=== PATIENT | female | born 1995 | race Caucasian/White ===

== ENCOUNTER 2017-10-28 08:54 | Day surgery (SDC) | payer OTHER, SELFPAY ==
[2017-10-16 16:39] VITALS: BMI 22.8
[2017-10-28] VITALS (7 sets, daily range): BP systolic 107–118; BP diastolic 69–76; PULSE 59–81; RESP 12–22; TEMP 36.3–36.8; O2SAT 98–100; BMI 22.8; BMI 22.7
[2017-10-28] MEDS: LACTATED RINGERS 1,000 ML 42 ML IV (09:39)
--- NOTE | 2017-10-28 10:52 | SUR.OPER ---
Lithotomy on padded OR bed, head on pillow, arms secured on padded arm boards at <90 degrees abduction. Legs secured in padded yellow fins stirrups.
[2017-10-28] MEDS: BUPIVACAINE 0.5% W/ EPI (PF) VIAL 30 ML INJ (11:00)
--- NOTE | 2017-10-28 11:00 | PM.PREOP ---
Pre-operative Note Interval Note Pre-op Check: Yes History & Physical exam performed today by Physician Changes: No
--- NOTE | 2017-10-28 11:03 | P.HPOB_ITS ---
History of Present Illness Narrative: Tina Montemayor is a 21 year old female 0 with pelvic pain and dysmenorrhea for a diagnostic laparoscopy [facility] Medical History Dysmenorrhea (Acute) Pelvic pain (Acute) Social History household members: significant other Smoking Status: Current every day smoker Meds Home Medications Medication Instructions Recorded Confirmed Type No Known Home Medications 10/09/17 10/16/17 History Allergies Allergy/AdvReac Type Severity Reaction Status Date / Time Latex, Natural Rubber Allergy Mild Rash Verified 10/28/17 09:25 Exam Vital Signs (past 8 hours): - 10/28/17 09:12 Temperature 98.1 F Pulse Rate 70 Respiratory Rate 18 Blood Pressure 108/71 Pulse Oximetry 100 Oxygen Delivery Method Room Air Narrative Exam Narrative: HEENT: No thyromegaly, no anterior cervical or supraclavicular lymphadenopathy. Lungs:Clear to auscultation bilaterally, no wheezes. Cardiovascular: Regular rate and rhythm, no murmurs, rubs, or gallops. Abdomen: No scars. No hepatosplenomegaly. No masses palpable. External genitalia: Normal Vagina: Normal Cervix: Normal Bimanual exam: 5 Week size uterus. Mobile.] Tenderness along the uterosacral ligaments. Rectal: No masses. Assessment & Plan (1) Pelvic pain in female: Current visit: Yes Status: Acute (2) Primary dysmenorrhea: Current visit: Yes Status: Acute Plan: Assessment/Plan Narrative: Assessment: 21-year-old 0 with dysmenorrhea and pelvic pain, suspect endometriosis Plan: Diagnostic laparoscopy with possible fulguration of endometriosis The risks, benefits, and alternatives to the procedure were explained to the patient. The risks including bleeding, infection, injury to the bowel, bladder , or ureters. She understands these risks and agrees to proceed. A full capital P AR-Q was held and consent form was signed.
--- NOTE | 2017-10-28 11:07 | PM.GYNOP.1 ---
Operative Date/Time/Diagnoses Date of procedure: 10/28/17 Time of procedure: 11:07 Pre-op diagnosis: Pelvic pain Dysmenorrhea Post-op diagnosis: same Procedure: Procedures Operation Date: 10/28/17 09:45 Actual Procedures Side Surgeon p Laparoscopy, Diagnostic with aspiration of pelvic fluid Ava Garza MD Indications: Dysmenorrhea Pelvic pain Surgeon: Ava Garza Anesthesia Type: General Operative Notes Findings: 5 week size anteverted uterus Normal tubes and ovaries Normal appendix Normal liver and gallbladder No evidence of endometriosis or adhesions Closure Type: primary Specimen(s): none Estimated blood loss (mL): 2 Blood products transfused: none Procedure in detail: After informed consent was obtained, the patient was taken to the operating room where she was placed in the dorsal supine position. After adequate general endotracheal anesthesia was achieved, she was prepped and draped in the usual sterile fashion in the dorsal lithotomy position. A bivalve speculum was placed into the vagina, and the anterior lip of the cervix grasped with a single-tooth tenaculum. Cervical os was sequentially dilated until the Zumi uterine manipulator could pass easily into the endometrial cavity. Single-tooth tenaculum was removed from the anterior lip of the cervix. The bivalve speculum was removed from the vagina. Attention was then turned to the abdomen where 6 cc of 0.5% Marcaine with epinephrine were injected in the umbilical fold. A 5 mm incision was made. The Veress needle was placed into the peritoneal cavity, and its placement confirmed by aspiration drop test. The abdominal cavity was insufflated with 3.1 L of CO2. The Verhees needle was removed and a 5 mm trocar was placed without difficulty. Initial inspection of the abdomen revealed the findings noted above. A 2nd incision was made after 6 cc of 0.5% Marcaine with epinephrine were injected just above the pubic symphysis and a 5 mm incision was made. A 2nd 5 mm trocar was placed under direct visualization. A probe was used to identify both ovaries which were normal. Both tubes were normal. There was no evidence of endometriosis in the anterior or posterior cul-de-sac, or ovarian fossae. There was no evidence of adhesions. There were approximately 15 cc of clear yellow fluid in the cul-de-sac. This was aspirated and discarded. The instruments were removed from the abdomen. The CO2 was allowed to escape. The trocars were removed. The incisions were repaired with 4 0 undyed Vicryl in a subcuticular fashion. Steri-Strips, 2 x 2, and op sites were placed. The Zumi uterine manipulator was removed from the uterus. Sponge, lap, and instrument counts were correct x2. The patient tolerated the procedure well, was taken to PACU in stable condition. Complications: none Post-operative Condition: stable Disposition: PACU Plan for aftercare: Home after recovery
[2017-10-28] MEDS: ONDANSETRON 4 MG/2 ML INJ IV (11:15)
[2017-10-28] MEDS: METOCLOPRAMIDE 10 MG/2 ML INJ IV (11:27)
== END 2017-10-28 12:02 | disposition home or self-care (01) ==
PROVIDERS: Visit Provider Obstetrics & Gynecology
PROC: (CPT 49320; principal; 2017-10-28 09:45)
DX: R10.2 Pelvic and perineal pain (principal); N94.6 Dysmenorrhea, unspecified; F17.210 Nicotine dependence, cigarettes, uncomplicated
CPT/HCPCS: 49322; J1100; J2405; J2704; J2765

== ENCOUNTER → 2020-10-24 17:37 | Outpatient (CLI) | payer OTHER, SELFPAY ==
[2020-10-24 18:16] LABS: Add Manual Diff / Slide Review NO; Basophils Absolute Auto 0 /uL (0-100); Basophils Percent Auto 0.4 % (0-2); Eosinophils Absolute Auto 100 /uL (0-450); Eosinophils Percent Auto 0.5 % (2-4); Hematocrit 37.2 % (36-46); Hemoglobin 12.6 g/dL (12.0-16.0); Lymphocytes Absolute Auto 2100 /uL (1100-4500); Lymphocytes Percent Auto 18.9 % (25-40); Mean Corpuscular HGB Conc 33.8 % (30-36); Mean Corpuscular Hemoglobin 31.9 PG (26-34); Mean Corpuscular Volume 94.4 fL (80-100); Monocytes Absolute Auto 700 /uL (0-900); Monocytes Percent Auto 6.6 % (3-14); Neutrophils Absolute Auto 8100 /uL (1500-7000); Neutrophils Percent Auto 73.6 % (50-75); Platelet Count 254 X10^3/uL (150-400); Red Blood Cell Count 3.94 X10^6/uL (4.0-5.2); Red Cell Distribution Width 13.1 % (11.6-14.8)
[2020-10-24 18:33] LABS: Appearance Urine UA CLEAR; Bilirubin Urine UA NEGATIVE (NEGATIVE); Color Urine UA YELLOW; Glucose Urine UA NEGATIVE (Negative); Ketones Urine UA NEGATIVE (NEGATIVE); Leukocyte Esterase Urine UA NEGATIVE (NEGATIVE); Nitrite Urine UA NEGATIVE (Negative); Occult Blood Urine UA NEGATIVE (Negative); Protein Urine UA TRACE (Negative); Urobilinogen Urine UA 0.2 E.U./dL (0.2)
[2020-10-24 19:18] LABS: Hepatitis B Surface Antigen NEGATIVE s/c (NEGATIVE); Rubella Antibody IgG 4.6 IU/mL (>15)
[2020-10-24 19:24] LABS: HIV 1 & 2 Ab/Ag 4th Gen Combo NEGATIVE (NEGATIVE); Hep C Virus Ab w/Reflex Quant NEGATIVE s/c (NEGATIVE)
[2020-10-25 08:16] LABS: RPR Screen Non Reactive (Non Reactive)
[2020-10-25 08:46] LABS: Varicella IgG Antibody 464 index (Immune >165)
== END ==
PROVIDERS: PCP Physician Assistant; Referring Provider Obstetrics & Gynecology; Visit Provider Obstetrics & Gynecology
DX: Z34.81 Encounter for supervision of other normal pregnancy, first trimester (principal)
CPT/HCPCS: 36415; 80055; 81003; 86787; 86803; 86850; 86900; 86901; 87086; 87389

== ENCOUNTER → 2020-12-26 16:17 | Outpatient (CLI) | payer OTHER, SELFPAY ==
[2020-12-28 19:12] LABS: AFP, Serum 79.7 ng/mL (.); Estriol, Free 1.39 ng/mL (.); Inhibin A, MoM 1.75 (.); Maternal Ethnicity Caucasian (.); Maternal Weight 150 lbs (.); Number of Fetuses No (.); OSBR Risk 1 IN 1162 (.); Results Report (.); Test Results *Screen Negative* (.); hCG, Serum 14788 mIU/mL (.)
== END ==
PROVIDERS: PCP Physician Assistant; Referring Provider Obstetrics & Gynecology; Visit Provider Obstetrics & Gynecology
DX: Z34.82 Encounter for supervision of other normal pregnancy, second trimester (principal); Z3A.16 16 weeks gestation of pregnancy
CPT/HCPCS: 36415; 82105; 82677; 84702; 86336

== ENCOUNTER → 2021-01-31 13:31 | Outpatient (CLI) | payer OTHER, SELFPAY ==
--- NOTE | 2021-01-31 13:32 | DI.US.S_ITS ---
PROCEDURE: US OB >= 14 WEEKS FETUS INDICATIONS: Anatomy scan OUTSIDE/PRIOR DATING DATA: Last menstrual period (LMP): 08/23/2020. LMP-based estimated date of delivery (ÁNGEL): 05/30/2021 . First dating scan (date and location): 10/24/2020 . Estimated date of delivery (ÁNGEL) from first dating scan: 05/22/2021 . TECHNIQUE: Real-time scanning was performed of the fetus, with image documentation and biometric measurements. Endovaginal scanning: No COMPARISON: [facility], , OB <= 14 WEEKS FETUS, 10/24/2020, 17:33. FINDINGS: General: A single living intrauterine gestation is present. Presentation: Variable. Placenta: Placental position is anterior , without previa. Amniotic fluid index: 14.9 cm, normal range is 5-24 cm. heart rate: 139 beats per minute. Maternal cervical canal: 3.5 cm long. Normal lower limit is 2.5 cm. biometrics: Biparietal diameter: 24 weeks Head circumference: 24 weeks 2 days Abdominal circumference: 23 weeks 6 days Femur length: 22 weeks 6 days Estimated gestational age from initial scan: 24 weeks 1 day Composite gestational age from present scan: 23 weeks 5 days Estimated weight and percentile: 607 g; 18th percentile Measurement variability for biometric dating: +/- 7 days from 14 weeks to 15 weeks 6 days gestation, +/- 10 days from 16 weeks to 21 weeks 6 days gestation, +/- 2 weeks from 22 weeks to 27 weeks 6 days gestation, +/- 3 weeks for 28 weeks gestation or later. weight reference: 4500 g or EFW >90/95% is considered macrosomia or large for gestational age. EFW <10% is small for gestational age. EFW 5% or less is considered intra-uterine growth restriction. Anatomic survey: Neuro: Ventricles are non-dilated at less than 10 mm. Cisterna magna is normal at 3-11 mm. Cerebellum is normal in size and morphology. Nuchal skin fold: Normal at less than 6 mm between 14-21 weeks gestational age. Face: Nose and lips, facial profile are normal. Spine: No evidence for spina bifida. Heart: 4-chambered heart is present, with normal ventricular outflow tracts. Diaphragm: Diaphragm is intact. Stomach: Left-sided stomach is present. Kidneys: No hydronephrosis. Normal is less than 5 mm in 2nd trimester, less than 7 mm in 3rd trimester. Cord: 3-vessel cord has orthotopic insertion. Bladder: Normal in size. Extremities: All 4 extremities identified. IMPRESSION: 1. Single living IUP redemonstrated and interval growth is within normal limits. 2 . Normal anatomic survey. Dictated by: Slyvain Coleman [facility] Interpreted: Clifford Paris MD on 01/31/2021 at 15:06 Transcribed by: ANNAMARIE on 01/31/2021 at 15:08 Approved by: Clifford Paris M.D. on 01/31/2021 at 18:08
== END ==
PROVIDERS: PCP Physician Assistant; Referring Provider Obstetrics & Gynecology; Visit Provider Obstetrics & Gynecology
DX: Z34.82 Encounter for supervision of other normal pregnancy, second trimester (principal); Z3A.23 23 weeks gestation of pregnancy
CPT/HCPCS: 76811

== ENCOUNTER → 2021-02-20 14:18 | Outpatient (CLI) | payer OTHER, SELFPAY ==
[2021-02-20 16:25] LABS: Hemoglobin 10.8 g/dL (12.0-16.0)
[2021-02-20 17:13] LABS: GTT (PREG) 1 Hour PP 50gm Dose 102 mg/dL (76-139)
== END ==
PROVIDERS: PCP Physician Assistant; Referring Provider Obstetrics & Gynecology; Visit Provider Obstetrics & Gynecology
DX: Z34.82 Encounter for supervision of other normal pregnancy, second trimester (principal); Z3A.26 26 weeks gestation of pregnancy
CPT/HCPCS: 36415; 82950; 85014; 85018; 86850

== ENCOUNTER → 2021-04-24 13:31 | Outpatient (CLI) | payer OTHER, SELFPAY ==
[2021-04-25 10:05] LABS: Strep Grp B PCR NEG for Grp B Strep
== END ==
PROVIDERS: PCP Physician Assistant; Visit Provider Obstetrics & Gynecology
DX: Z34.83 Encounter for supervision of other normal pregnancy, third trimester (principal); Z3A.36 36 weeks gestation of pregnancy
CPT/HCPCS: 87653

== ENCOUNTER 2021-05-08 15:03 | Outpatient (CLI) | payer OTHER, SELFPAY | END 2021-05-08 15:40 | disposition home or self-care (01) | LOC: OB 05-09 13:02 | PROVIDERS: PCP Physician Assistant; Referring Provider Obstetrics & Gynecology; Visit Provider Obstetrics & Gynecology | DX: O36.8330 Maternal care for abnormalities of the fetal heart rate or rhythm, third trimester, not applicable or unspecified (principal); Z3A.37 37 weeks gestation of pregnancy | CPT/HCPCS: 59025; G0378; G0379 ==

== ENCOUNTER 2021-05-23 06:55 | Inpatient (IN) | payer OTHER, SELFPAY ==
[2021-05-23 09:07] LABS: Add Manual Diff / Slide Review NO; Basophils Absolute Auto 100 /uL (0-100); Basophils Percent Auto 0.6 % (0-2); Eosinophils Absolute Auto 0 /uL (0-450); Eosinophils Percent Auto 0.3 % (2-4); Hematocrit 35.8 % (36-46); Hemoglobin 11.9 g/dL (12.0-16.0); Lymphocytes Absolute Auto 2300 /uL (1100-4500); Mean Corpuscular HGB Conc 33.1 % (30-36); Mean Corpuscular Hemoglobin 31.5 PG (26-34); Monocytes Absolute Auto 800 /uL (0-900); Monocytes Percent Auto 6.2 % (3-14); Neutrophils Absolute Auto 9500 /uL (1500-7000); Neutrophils Percent Auto 74.9 % (50-75); Platelet Count 320 X10^3/uL (150-400); Red Blood Cell Count 3.77 X10^6/uL (4.0-5.2); Red Cell Distribution Width 12.8 % (11.6-14.8); White Blood Cell Count 12.7 X10^3/uL (4.5-11.0)
[2021-05-23 09:14] VITALS: BP 120/81
[2021-05-23 09:26] LABS: COVID19 -Nasal RAPID Negative (Negative)
[2021-05-23] MEDS: LACTATED RINGERS 1,000 ML 100 ML IV ×2 (09:45→18:24)
--- NOTE | 2021-05-23 11:40 | PM.AN.REGBLK ---
Regional Block Pre-procedure Procedure: Continuous Lumbar Epidural for L&D Attending OB provider: Ava Garza PMH/ROS narrative: , h/o seizure disorder under control with medication. Hx: No personal or family history of anesthesia problems. PSH/Anesthesia history narrative: none Exam narrative: MP2 RRR CTAB ASA Class: II Labs: Hct 35.8 % (36-46) L 05/23/21 08:15 Plt Count 320 X10^3/uL (150-400) 05/23/21 08:15 Medications: Current Medications Generic Name Dose Route Start Last Admin Trade Name Freq PRN Reason Stop Dose Admin Carboprost Tromethamine 250 mcg 05/23/21 08:47 Carboprost 250 Mcg/Ml Ampul IM Q90M PRN Bleeding Lactated Ringer's 1,000 mls @ 100 mls/hr 05/23/21 09:00 Lactated Ringers IV CONT VALENCIA Oxytocin/Lactated Ringer's 30 unit in 500 mls @ 200 mls/hr 05/23/21 08:47 Oxytocin Premix IV CONT PRN Bleeding Protocol Tranexamic Acid 1,000 mg/ 100 mls @ 200 mls/hr 05/23/21 08:47 Sodium Chloride IV NOW PRN Bleeding Methylergonovine Maleate 0.2 mg 05/23/21 08:47 Methylergonovine 0.2 Mg Tablet PO Q6HR PRN Heavy Bleeding Methylergonovine Maleate 0.2 mg 05/23/21 08:47 Methylergonovine 0.2 Mg/Ml Vial IM NOW PRN Bleeding Misoprostol 800 mcg 05/23/21 08:47 Misoprostol 200 Mcg Tablet NH NOW PRN Bleeding Misoprostol 1,000 mcg 05/23/21 08:47 Misoprostol 200 Mcg Tablet NH NOW PRN Bleeding Misoprostol 400 mcg 05/23/21 08:47 Misoprostol 200 Mcg Tablet SL NOW PRN Bleeding Ondansetron HCl 4 mg 05/23/21 11:38 Ondansetron 4 Mg/2 Ml Inj IV Q4HR PRN Nausea And Vomiting Oxytocin 10 unit 05/23/21 08:47 Oxytocin 10 Unit/Ml Vial IM NOW PRN Bleeding Allergies: Allergies Allergy/AdvReac Type Severity Reaction Status Date / Time Latex, Natural Rubber Allergy Mild Rash Verified 05/16/21 16:30 mushroom Allergy Mild Sinus Verified 05/16/21 16:30 drainage/mucous. Procedure Insertion date: 05/23/21 Insertion time: 11:14 Prep/Local: betadine x3 (chloroprep) and 1% lidocaine Interspace: L2-3 Patient position: sitting Needle: 18 gauge Hustead (with 27G pencil point needle-through needle for IT dose) Loss of resistance with: saline (with air bubble) LUBNA at (cm): 5 Catheter placed at SKIN (cm): 9 Catheter in SPACE (cm): 4 Insertion: Yes CSF, No Blood, No Paresthesia with insertion, No Paresthesia with injection and No Test dose reaction Initial Medications TEST DOSE time: 11:14 TEST DOSE: 1.5% lidocaine with epinephrine 1:200k (mL): 5 (3mL initial test dose, 2mL as part of first bolus) BOLUS DOSE time: 11:15 BOLUS DOSE (mL): 2 BOLUS DOSE med: other (10mcg fentanyl intrathecally, 90mcg fentanyl via epidural catheter) Infusion INFUSION: 0.0625% bupivacaine and with fentanyl 2 mcg/mL Initial rate (mL/hr): 12 (with bolus of 5mL Q15min lockout) Subsequent interventions: 15:30, patient with increased pain on right side, previously good coverage. Has used boluses. 07/18 given. Last check at 7cm dilation. Patient appears in distress. Bupivicaine 0.25% 10mL given. 1545: much improved, bolus education given. Post-procedure Anesthesia time START: 10:59 Anesthesia time END: 19:50 Post-procedure Anesthesia Assessment: No Anesthesia complications
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
[2021-05-23] MEDS: ONDANSETRON 4 MG/2 ML INJ IV ×2 (11:53→18:56)
[2021-05-23] MEDS: OXYTOCIN PREMIX 30 UNIT/500 ML PLAST..BAG IV (13:27)
[2021-05-23] MEDS: FENT 2MCG/ML BUPIV 0.125% EPI 200 MCG/100 ML PLAST..BAG 12 MCG EPIDURAL (16:57)
--- NOTE | 2021-05-23 18:40 | PM.OBPNLAB ---
Date/Time Date Patient Seen: 05/23/21 Time Patient Seen: 11:45 Pain Control Pain control: epidural Pelvic Exam Dilation (cm): 5 Effacement (%): 100 station: 0 Amniotic membrane status: Intact Contractions Contractions on admission: regular Monitor mode: External Contraction frequency (min): 4 Contraction duration (min): 1 Contraction pattern: Regular Contraction intensity: Strong/Firm Status status: Category l Heart Rate Baseline: 130 Monitor Accelerations: Present Monitor Decelerations: Absent Monitor Variability: Moderate Assessment and Plan Assessment: active labor Comments: AROM with clear amniotic fluid
--- NOTE | 2021-05-23 18:42 | PM.OBPNLAB ---
Date/Time Date Patient Seen: 05/23/21 Time Patient Seen: 17:30 Pain Control Pain control: epidural Pelvic Exam Dilation (cm): 9 Effacement (%): 100 station: 0 Amniotic membrane status: Ruptured Contractions Contractions on admission: regular Monitor mode: External Pitocin rate (mU/min): 3 Contraction frequency (min): 3 Contraction duration (min): 1 Contraction pattern: Regular Contraction intensity: Strong/Firm Status status: Category l Heart Rate Baseline: 115 Monitor Accelerations: Present Monitor Decelerations: Absent Monitor Variability: Moderate Assessment and Plan Assessment: active labor Plan: continuous present management Comments: Side to side
--- NOTE | 2021-05-23 20:38 | PM.OBPRVD ---
Events: Labor Augmentation Labor & Delivery Delivery date: 05/23/21 Intrapartal Events: None Cervical ripening method: none Induction method: none Delivery augmentation: rupture of membranes and pitocin Delivery monitor: external FHT and external uterine Route of delivery: Episiotomy description: None L&D Laceration Description: Labial (Bilateral superficial) and Superficial (Vaginal) Delivery repair: chromic Estimated blood loss (mL): 150 Anesthesia Type: Epidural Complications: None Narrative: Patient complete and pushed for 42 minutes. At 7:51 p.m., a live male infant delivered spontaneously in the ALAINA presentation, over an intact perineum. Nuchal cord x1 reduced on the perineum. The remainder of the body delivered without difficulty and was placed on mom's abdomen. Pitocin was given in the IV fluids. the cord stopped pulsing, the cord was double clamped and cut. Cord bloods were obtained. The placenta delivered intact with a three-vessel cord at 8:07 p.m.. The fundus was massaged to firm. A superficial vaginal and bilateral superficial labial lacerations were repaired with 3-0 chromic in the usual fashion. Hemostasis was achieved. Estimated blood loss 150 cc. Apgars 9 at 1 minute and 9 at 5 minutes. Epidural analgesia. . Mom and infant stable to recovery. [place] Baby 1: gender: Male Presentation: vertex Position: Right Occiput Anterior Placenta delivery description: Spontaneous Cord Vessel Description: 3 Vessels, Nuchal Cord (X1), Loose and Reduced score (1 min): 9 score (5 min): 9 weight: 7 lb 5.1 oz Plan for aftercare: Routine care
[2021-05-23 21:40] VITALS: TEMP 36.3
[2021-05-23] MEDS: KETOROLAC 30 MG/ML VIAL IV (21:40)
[2021-05-23] MEDS: DERMOPLAST SPRAY 20% 60 ML 1 SPRAY TOP (21:41)
[2021-05-24] MEDS: IBUPROFEN 600 MG TABLET PO ×3 (03:49→16:10)
[2021-05-24] MEDS: ONDANSETRON 4 MG/2 ML INJ IV (03:49)
[2021-05-24] MEDS: ACETAMINOPHEN 325 MG TABLET 650 MG PO ×3 (03:50→16:10)
[2021-05-24 05:42] LABS: Hematocrit 30.2 % (36-46); Hemoglobin 9.9 g/dL (12.0-16.0)
[2021-05-24] MEDS: PRENATAL VIT,CALC/IRON/FOLIC 1 TABLET 1 TAB PO (09:54)
[2021-05-24] MEDS: DOCUSATE 100 MG CAPSULE PO (09:55)
--- NOTE | 2021-05-24 15:40 | PM.OBPN.1 ---
Subjective - OB Subjective Patient comments: no complaints and incisional pain [place] baby status: doing well and nursing well feeding status: exclusively breast feeding Date Patient Seen: 05/24/21 Time Patient Seen: 13:00 Interval history: day # 1 status post spontaneous vaginal delivery. going well. Bleeding tapering. Having some perineal pain. Exam Narrative Exam Narrative: Generally: Patient is sitting up in bed, holding , no acute distress Fundus: Firm at U -1 Extremities: Trace edema, negative [place] Objective Labs Result Diagrams: 05/24/21 05:20 Labs: Laboratory Results - last 24 hr 05/24/21 05/24/21 05:20 05:20 Hgb 9.9 L Hct 30.2 L Maternal Bleed Negative Assessment & Plan Plan day: 1 plan OB: discharge home Time Spent With Patient Time: Total time spent is greater than 50% in coordination of care (as documented) at patient's floor/unit and/or counseling patient: Time with patient: 15-24 minutes
[2021-05-24] MEDS: RHO(D) IMMUNE GLOBULIN 1,500 UNIT SYRINGE 1500 UNIT IM (17:08)
[2021-05-24] MEDS: MEASLES,MUMPS,RUBELLA VACC/PF 0.5 ML VIAL SUBCUT (17:09)
[2021-05-24 17:10] VITALS: BP 127/85; PULSE 70; RESP 16; TEMP 36.3
== END 2021-05-24 17:55 | disposition home or self-care (01) | DRG 806 ==
PROVIDERS: Admitting Provider Obstetrics & Gynecology; PCP Physician Assistant; Referring Provider Obstetrics & Gynecology; Visit Provider Obstetrics & Gynecology
DX: O48.0 Post-term pregnancy (principal); O71.4 Obstetric high vaginal laceration alone; Z37.0 Single live birth; Z3A.40 40 weeks gestation of pregnancy; O69.81X0 Labor and delivery complicated by cord around neck, without compression, not applicable or unspecified
CPT/HCPCS: 01967; 36415; 59025; 59050; 59400; 85014; 85018; 85025; 85461; 86850; 86870; 86900; 86901; 87635; C9803; G0379; J1885; J2405; J2590; J2790

== ENCOUNTER → 2023-10-07 15:21 | Outpatient (CLI) | payer OTHER, SELFPAY ==
[2023-10-07 18:20] LABS: Urine N gonorrhoeae NOT DETECTED
[2023-10-07 18:24] LABS: Urine Chlamydia NOT DETECTED
== END ==
PROVIDERS: PCP Physician Assistant; Visit Provider Specialist
DX: Z11.3 Encounter for screening for infections with a predominantly sexual mode of transmission (principal); Z3A.08 8 weeks gestation of pregnancy
CPT/HCPCS: 87491; 87591

== ENCOUNTER → 2023-10-07 15:40 | Outpatient (CLI) | payer OTHER, SELFPAY ==
[2023-10-07 17:21] LABS: Add Manual Diff / Slide Review NO; Basophils Absolute Auto 0 /uL (0-100); Basophils Percent Auto 0.4 % (0-2); Eosinophils Absolute Auto 100 /uL (0-450); Eosinophils Percent Auto 0.6 % (2-4); Hematocrit 33.7 % (36-46); Hemoglobin 11.5 g/dL (12.0-16.0); Lymphocytes Absolute Auto 2100 /uL (1100-4500); Lymphocytes Percent Auto 22.8 % (25-40); Mean Corpuscular HGB Conc 34.2 % (30-36); Mean Corpuscular Hemoglobin 32.8 PG (26-34); Mean Corpuscular Volume 95.8 fL (80-100); Monocytes Absolute Auto 800 /uL (0-900); Monocytes Percent Auto 8.7 % (3-14); Neutrophils Absolute Auto 6100 /uL (1500-7000); Neutrophils Percent Auto 67.5 % (50-75); Platelet Count 243 X10^3/uL (150-400); Red Blood Cell Count 3.52 X10^6/uL (4.0-5.2); Red Cell Distribution Width 12.7 % (11.6-14.8); White Blood Cell Count 9.1 X10^3/uL (4.5-11.0)
[2023-10-07 19:27] LABS: Hepatitis B Surface Antigen NEGATIVE s/c (NEGATIVE); Rubella Antibody IgG 19.6 IU/mL (>15)
[2023-10-07 19:46] LABS: HIV 1 & 2 Ab/Ag 4th Gen Combo NEGATIVE (NEGATIVE); Hep C Virus Ab w/Reflex Quant NEGATIVE s/c (NEGATIVE)
== END ==
LOC: LAB 15:41
PROVIDERS: PCP Physician Assistant; Referring Provider Specialist; Visit Provider Specialist
DX: O15.00 Eclampsia complicating pregnancy, unspecified trimester (principal); Z11.3 Encounter for screening for infections with a predominantly sexual mode of transmission; Z3A.08 8 weeks gestation of pregnancy
CPT/HCPCS: 36415; 80055; 80175; 86787; 86803; 86850; 86900; 86901; 87389; 87491; 87591

== ENCOUNTER → 2023-12-06 16:17 | Outpatient (CLI) | payer OTHER, SELFPAY ==
[2023-12-09 13:36] LABS: Estriol, Free 1.22 ng/mL (.); Inhibin A, Dimeric 201.96 pg/mL (.); Inhibin A, MoM 1.24 (.); Maternal Ethnicity Caucasian (.); Maternal Weight 148 lbs (.); Number of Fetuses No (.); OSBR Risk 1 IN 1630 (.); Results Report (.); Test Results *Screen Negative* (.); hCG, MoM 0.21 (.); hCG, Serum 6714 mIU/mL (.)
[2023-12-09 14:12] LABS: Lamotrigine Lamictal 5.5 ug/mL (2.0-20.0)
== END ==
PROVIDERS: PCP Physician Assistant; Referring Provider Obstetrics & Gynecology; Visit Provider Obstetrics & Gynecology
DX: Z34.82 Encounter for supervision of other normal pregnancy, second trimester (principal); Z3A.17 17 weeks gestation of pregnancy
CPT/HCPCS: 36415; 80175; 82105; 82677; 84702; 86336

== ENCOUNTER → 2024-01-07 12:52 | Outpatient (CLI) | payer OTHER, SELFPAY ==
--- NOTE | 2024-01-07 12:54 | DI.US.S_ITS ---
PROCEDURE: US OB >= 14 WEEKS FETUS INDICATIONS: 20 week anatomy scan OUTSIDE/PRIOR DATING DATA: Last menstrual period (LMP): 08/06/2023. LMP-based estimated date of delivery (ÁNGEL): 05/12/2024. First dating scan (date and location): 11/07/2023. Estimated date of delivery (ÁNGEL) from first dating scan: 05/12/2024. The calculations are made using the clinical/ultrasound ÁNGEL of 05/12/2024. TECHNIQUE: Real-time scanning was performed of the fetus, with image documentation and biometric measurements. COMPARISON: [facility], , OB >= 14 WEEKS FETUS, 12/06/2023, 16:19. FINDINGS: General: A single living intrauterine gestation is present. Presentation: Variable. Placenta: Placental position is posterior , without previa. Amniotic fluid index: 12.5 cm, normal range is 5-24 cm. Single deepest vertical pocket is 4.7 cm. heart rate: 141 beats per minute. Maternal cervical canal: 3.5 cm long. Normal lower limit is 2.5 cm. biometrics: Biparietal diameter: 5.3 cm 22 weeks 0 days Head circumference: 18.7 cm 21 weeks 0 days Abdominal circumference: 18.1 cm 22 weeks 6 days Femur length: 3.5 cm 21 weeks 0 days Clinically estimated gestational age: 22 weeks 0 days Composite gestational age from present scan: 21 weeks 5 days Estimated weight and percentile: 464 g, 41st percentile Anatomic survey: Neuro: Ventricles are non-dilated at less than 10 mm. Cisterna magna is normal at 3-11 mm. Cerebellum is normal in size and morphology. Nuchal skin fold: Normal at less than 6 mm between 14-21 weeks gestational age. Face: Nose and lips, facial profile are normal. Spine: No evidence for spina bifida. Heart: 4-chambered heart is present, with normal ventricular outflow tracts. Diaphragm: Diaphragm is intact. Stomach: Left-sided stomach is present. Kidneys: No hydronephrosis. Normal is less than 5 mm in 2nd trimester, less than 7 mm in 3rd trimester. Cord: 3-vessel cord has orthotopic insertion. Bladder: Normal in size. Extremities: All 4 extremities identified. IMPRESSION: Single live intrauterine with gestational age today of 21 weeks 5 days. Anatomy is within normal limits. We strive to produce accurate, complete, and clear reports of imaging services. To assist us in improving patient care, this report was composed using standard report templates and voice recognition software. Therefore, it may contain abnormal punctuation, insertions and/or omissions. Occasional wrong-word or sound-alike substitutions may occur. Though we review the report and make efforts to correct it, we do recommend that the report be read carefully in proper context to recognize any text inaccuracies. Dictated by: Tanesha Alaniz M.D. on 01/07/2024 at 17:16 Approved by: Tanesha Alaniz M.D. on 01/07/2024 at 17:18
== END ==
LOC: US 12:53
PROVIDERS: PCP Physician Assistant; Referring Provider Obstetrics & Gynecology; Visit Provider Obstetrics & Gynecology
DX: Z34.82 Encounter for supervision of other normal pregnancy, second trimester (principal); Z3A.21 21 weeks gestation of pregnancy
CPT/HCPCS: 76811

== ENCOUNTER → 2024-01-21 08:38 | Outpatient (CLI) | payer OTHER, SELFPAY ==
[2024-01-21 10:26] LABS: Hematocrit 33.7 % (36-46); Hemoglobin 11.4 g/dL (12.0-16.0)
[2024-01-21 10:48] LABS: GTT (PREG) 1 Hour PP 50gm Dose 89 mg/dL (76-139)
== END ==
PROVIDERS: PCP Physician Assistant; Referring Provider Specialist; Visit Provider Specialist
DX: Z34.82 Encounter for supervision of other normal pregnancy, second trimester (principal); Z3A.26 26 weeks gestation of pregnancy
CPT/HCPCS: 82950; 85014; 85018; 86850

== ENCOUNTER → 2024-01-31 10:04 | Outpatient (CLI) | payer OTHER, SELFPAY ==
[2024-02-04 08:13] LABS: Lamotrigine Lamictal 2.9 ug/mL (2.0-20.0)
== END ==
PROVIDERS: PCP Physician Assistant; Referring Provider Specialist; Visit Provider Specialist
DX: Z34.82 Encounter for supervision of other normal pregnancy, second trimester (principal); R56.9 Unspecified convulsions; Z3A.25 25 weeks gestation of pregnancy
CPT/HCPCS: 36415; 80175

== ENCOUNTER 2024-04-02 16:49 | Observation (INO) | payer OTHER, SELFPAY ==
[2024-04-02 17:30] LABS: Add Manual Diff / Slide Review NO; Basophils Absolute Auto 0 /uL (0-100); Basophils Percent Auto 0.2 % (0-2); Eosinophils Absolute Auto 100 /uL (0-450); Eosinophils Percent Auto 0.5 % (2-4); Hemoglobin 10.9 g/dL (12.0-16.0); Lymphocytes Absolute Auto 2100 /uL (1100-4500); Lymphocytes Percent Auto 16.5 % (25-40); Mean Corpuscular HGB Conc 34.2 % (30-36); Mean Corpuscular Hemoglobin 33.3 PG (26-34); Mean Corpuscular Volume 97.5 fL (80-100); Monocytes Absolute Auto 1000 /uL (0-900); Monocytes Percent Auto 7.7 % (3-14); Neutrophils Absolute Auto 9700 /uL (1500-7000); Neutrophils Percent Auto 75.1 % (50-75); Platelet Count 246 X10^3/uL (150-400); Red Blood Cell Count 3.28 X10^6/uL (4.0-5.2); Red Cell Distribution Width 12.9 % (11.6-14.8)
[2024-04-02 17:41] LABS: Alanine Aminotransferase 20 IU/L (<35); Albumin 3.4 g/dL (3.5-5.0); Albumin Globulin Ratio 1.1 (1.0-2.8); Alkaline Phosphatase 121 U/L (38-126); Aspartate Aminotransferase 25 IU/L (14-36); BUN Creatinine Ratio 6.9 (6-22); Bilirubin Total 0.4 mg/dL (0.2-1.3); Blood Urea Nitrogen 4 mg/dL (7-17); Calcium 8.9 mg/dL (8.4-10.2); Carbon Dioxide 24 mmol/L (22-32); Chloride 108 mmol/L (98-107); Estimated Glomerular Filt Rate > 60 mL/min (>60); Globulin 3.1 g/dL (1.7-4.1); Glucose 92 mg/dL (70-100); HEMOLYSIS < 15 (0-50); Potassium 3.7 mmol/L (3.4-5.1); Sodium 134 mmol/L (137-145); Total Protein 6.5 g/dL (6.3-8.2)
[2024-04-02 17:50] LABS: Creatinine Urine Random 56.52 mg/dL; Protein (Total) Urine Random 17 mg/dL (0-12)
[2024-04-02 18:14] VITALS: TEMP 36.3
[2024-04-02] MEDS: ACETAMINOPHEN 325 MG TABLET 975 MG PO (18:14)
[2024-04-02] MEDS: LACTATED RINGERS 1,000 ML 1000 ML IV (18:43)
[2024-04-02 18:44] LABS: Appearance Urine UA CLOUDY; Bilirubin Urine UA NEGATIVE (NEGATIVE); Color Urine UA YELLOW; Glucose Urine UA NEGATIVE (Negative); Ketones Urine UA NEGATIVE (NEGATIVE); Leukocyte Esterase Urine UA NEGATIVE (NEGATIVE); Nitrite Urine UA NEGATIVE (Negative); Occult Blood Urine UA NEGATIVE (Negative); Protein Urine UA NEGATIVE (Negative); Urobilinogen Urine UA 0.2 E.U./dL (0.2); pH Urine UA 7.5 (4.5-8.0)
[2024-04-02 18:49] LABS: Amorphous Sediment Urine 1+; Bacteria Urine Few (2-10); RBC Urine 0-1/HPF (0-5/HPF); Squamous Epithelial Cell Urine 1-5 /HPF (0-5/HPF); Urine Volume 10mL (spun); WBC Urine 0-1/HPF (0-5/HPF)
[2024-04-02 18:50] LABS: Culture Indicated Urine Cult Not Indicated
== END 2024-04-02 19:48 | disposition home or self-care (01) ==
PROVIDERS: Admitting Provider Obstetrics & Gynecology; PCP Physician Assistant; Referring Provider Obstetrics & Gynecology; Visit Provider Obstetrics & Gynecology
DX: O26.893 Other specified pregnancy related conditions, third trimester (principal); R51.9 Headache, unspecified; R10.11 Right upper quadrant pain; Z3A.34 34 weeks gestation of pregnancy
CPT/HCPCS: 36415; 59025; 59050; 80053; 80175; 81001; 82570; 84156; 85025; 96360; G0378; G0379

== ENCOUNTER → 2024-04-15 10:01 | Outpatient (CLI) | payer OTHER, SELFPAY ==
[2024-04-16 11:38] LABS: Strep Grp B PCR NEG for Grp B Strep
== END ==
PROVIDERS: PCP Physician Assistant; Visit Provider Specialist
DX: Z34.83 Encounter for supervision of other normal pregnancy, third trimester (principal); Z3A.36 36 weeks gestation of pregnancy
CPT/HCPCS: 87653

== ENCOUNTER 2024-05-13 16:39 | Outpatient (CLI) | payer OTHER, SELFPAY | END 2024-05-13 17:35 | disposition home or self-care (01) | LOC: LABOR 16:52 → OB 05-15 10:29 | PROVIDERS: PCP Physician Assistant; Referring Provider Obstetrics & Gynecology; Visit Provider Obstetrics & Gynecology | DX: O99.323 Drug use complicating pregnancy, third trimester (principal); F12.90 Cannabis use, unspecified, uncomplicated; Z3A.40 40 weeks gestation of pregnancy | CPT/HCPCS: 59025; G0378; G0379 ==

== ENCOUNTER 2024-05-16 15:34 | Inpatient (IN) | payer OTHER, SELFPAY ==
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
[2024-05-16 16:30] LABS: Add Manual Diff / Slide Review NO; Basophils Absolute Auto 100 /uL (0-100); Basophils Percent Auto 0.5 % (0-2); Eosinophils Absolute Auto 100 /uL (0-450); Eosinophils Percent Auto 0.4 % (2-4); Hematocrit 36.6 % (36-46); Hemoglobin 12.3 g/dL (12.0-16.0); Lymphocytes Absolute Auto 2200 /uL (1100-4500); Lymphocytes Percent Auto 18.3 % (25-40); Mean Corpuscular HGB Conc 33.7 % (30-36); Mean Corpuscular Hemoglobin 33.1 PG (26-34); Mean Corpuscular Volume 98.3 fL (80-100); Monocytes Absolute Auto 900 /uL (0-900); Monocytes Percent Auto 7.3 % (3-14); Neutrophils Absolute Auto 8900 /uL (1500-7000); Neutrophils Percent Auto 73.5 % (50-75); Platelet Count 259 X10^3/uL (150-400); Red Blood Cell Count 3.72 X10^6/uL (4.0-5.2); Red Cell Distribution Width 12.9 % (11.6-14.8); White Blood Cell Count 12.1 X10^3/uL (4.5-11.0)
[2024-05-16 16:40] VITALS: BP 109/72
--- NOTE | 2024-05-16 17:24 | PM.AN.REGBLK ---
Regional Block Pre-procedure Procedure: Continuous Lumbar Epidural for L&D Attending OB provider: Shelly Rangel PMH/ROS narrative: , spontaneous labor, 40 5/7, membranes intact, 3cm dilation requests epidural. ROS negative with exception of chronic GERD and anxiety. PSH/Anesthesia history narrative: Previous vaginal delivery with epidural, no issues. Exam narrative: Mall 2 ASA Class: II Labs: Hct 36.6 % (36-46) 05/16/24 16:15 Plt Count 259 X10^3/uL (150-400) 05/16/24 16:15 Medications: Current Medications Generic Name Dose Route Start Last Admin Trade Name Freq PRN Reason Stop Dose Admin Calcium Carbonate 1,000 mg 05/16/24 16:10 Calcium Carbonate 500 Mg Tab PO Q2HR PRN Dyspepsia Carboprost Tromethamine 250 mcg 05/16/24 16:08 Carboprost 250 Mcg/Ml Ampul IM Q90M PRN Bleeding Fentanyl 100 mcg 05/16/24 16:10 Fentanyl 100 Mcg/2 Ml Inj IV Q1H PRN Pain, Severe (7-10) Oxytocin/Lactated Ringer's 30 unit in 500 mls @ 200 mls/hr 05/16/24 16:08 Oxytocin Premix IV CONT PRN Bleeding Protocol Tranexamic Acid 1,000 mg/ 100 mls @ 600 mls/hr 05/16/24 16:08 Sodium Chloride IV NOW PRN Bleeding Lactated Ringer's 1,000 mls @ 100 mls/hr 05/16/24 16:15 Lactated Ringers IV 05/17/24 02:14 CONT VALENCIA Lidocaine HCl 20 ml 05/16/24 16:08 Lidocaine 1% 20 Ml INJ INTRA-OP PRN Post Delivery Methylergonovine Maleate 0.2 mg 05/16/24 16:08 Methylergonovine 0.2 Mg Tablet PO Q6HR PRN Heavy Bleeding Methylergonovine Maleate 0.2 mg 05/16/24 16:08 Methylergonovine 0.2 Mg/Ml Vial IM NOW PRN Bleeding Mineral Oil 30 ml 05/16/24 16:08 Mineral Oil 30 Ml Udc TOP PRN PRN Version Misoprostol 800 mcg 05/16/24 16:08 Misoprostol 200 Mcg Tablet MI NOW PRN Bleeding Misoprostol 400 mcg 05/16/24 16:08 Misoprostol 200 Mcg Tablet SL NOW PRN Bleeding Naloxone HCl 0.2 mg 05/16/24 16:08 Naloxone 0.4 Mg/Ml Vial IV Q2MIN PRN Opiate Reversal Ondansetron HCl 4 mg 05/16/24 16:10 Ondansetron 4 Mg/2 Ml Inj IV Q4HR PRN Nausea And Vomiting Oxytocin 10 unit 05/16/24 16:08 Oxytocin 10 Unit/Ml Vial IM NOW PRN Bleeding Allergies: Allergies Allergy/AdvReac Type Severity Reaction Status Date / Time Latex, Natural Rubber Allergy Mild Rash Verified 05/13/24 16:08 mushroom Allergy Mild Sinus Verified 05/13/24 16:08 drainage/mucous. Procedure Insertion date: 05/16/24 Insertion time: 16:54 Prep/Local: 1% lidocaine (chlorhex skin prep, dry x 3 min) Interspace: L4-5 Patient position: sitting Needle: 17 gauge Tuohy Loss of resistance with: saline LUBNA at (cm): 7 Catheter placed at SKIN (cm): 13 Catheter in SPACE (cm): 6 Sensory level: T10 Insertion: No CSF, No Blood, No Paresthesia with insertion, No Paresthesia with injection and No Test dose reaction Initial Medications TEST DOSE time: 17:04 BOLUS DOSE time: 17:14 BOLUS DOSE (mL): 5 BOLUS DOSE med: other (pump solution) Infusion INFUSION: 0.125% bupivacaine and with fentanyl 2 mcg/mL Initial rate (mL/hr): 10 Post-procedure Anesthesia date START: 05/16/24 Anesthesia time START: 16:54 Anesthesia date END: 05/16/24 Anesthesia time END: 23:29 Post-procedure Anesthesia Assessment: Yes CV function: HR/BP stable, Yes Resp function: RR/sat/airway adequate, Yes Post-op hydration adequate, Yes Pain control adequate, Yes Nausea & vomiting absent, Yes Temperature > 36 C, Yes Mental status appropriate and Yes Anesthesia complications
[2024-05-16] MEDS: lamoTRIgine 100 MG TABLET 300 MG PO (20:56)
[2024-05-16] MEDS: FENT 2MCG/ML BUPIV 0.125% EPI 200 MCG/100 ML PLAST..BAG 10 MCG EPIDURAL (21:59)
[2024-05-16] MEDS: CALCIUM CARBONATE 500 MG TAB 1000 MG PO (22:00)
[2024-05-16] MEDS: ONDANSETRON 4 MG/2 ML INJ IV ×2 (22:40→22:50)
--- NOTE | 2024-05-16 23:41 | PM.OBPRVD ---
Labor & Delivery Delivery date: 05/16/24 Delivery Time: 23:29 Intrapartal Events: None Cervical ripening method: none Induction method: none Delivery augmentation: rupture of membranes Delivery monitor: external FHT Route of delivery: L&D Laceration Description: None Estimated blood loss (mL): 50 Anesthesia Type: Epidural Narrative: This is a 28 yo G3 now P2 who presented in spontaneous labor. She elected to have epidural. She progressed to complete and pushed over 30 minutes. A male delivered in the OA position. vigorous. Cord clamping was delayed for 3 minutes. Placenta delivered with external fundal massage. Blood was collected for Rh negative status. pitocin was started with delivery of the placenta. No lacerations. Mom and baby recovering well. Baby 1: gender: Male Presentation: vertex Position: Left Occiput Anterior Placenta delivery description: Spontaneous Cord Vessel Description: 3 Vessels score (1 min): 9 score (5 min): 9 Plan for aftercare: Routine care
[2024-05-17] MEDS: IBUPROFEN 600 MG TABLET PO ×4 (00:10→19:26)
[2024-05-17] MEDS: ACETAMINOPHEN 325 MG TABLET 650 MG PO ×4 (00:11→19:27)
[2024-05-17] MEDS: WITCH HAZEL/GLYCERIN PADS 1 EACH TOP (02:01)
[2024-05-17] MEDS: DERMOPLAST SPRAY 20% 60 ML 1 SPRAY TOP (02:01)
[2024-05-17] MEDS: lamoTRIgine 100 MG TABLET 300 MG PO (09:09)
[2024-05-17] MEDS: PRENATAL VIT,CALC/IRON/FOLIC 1 TABLET 1 TAB PO (09:10)
[2024-05-17] MEDS: DOCUSATE 100 MG CAPSULE PO (09:10)
--- NOTE | 2024-05-17 12:41 | PM.OBDS.1 ---
Discharge Providers Provider Date of admission: 05/16/24 15:34 Discharge Date: 05/17/24 Primary care physician: Viola Arboleda PA-C Consults: 05/16/24 16:09 Consult to Anesthesiology Urgent Comment: Consulting Provider: Anesthesiologist Reason for consultation: Epidural 05/17/24 23:40 Consult to [facility] Routine Comment: Discharge provider: Shelly Rangel MD Summary Hospital Course Date Patient Seen: 05/17/24 Time Patient Seen: 12:30 Diagnoses: Term vaginal delivery Hospital Course: This is a 28 yo G3 now P2 who delivered vaginally following spontaneous labor at 40w5d. complicated by seizure disorder (on lamictal and following with neurology). Delivery uncomplicated. Bleeding normal. Pain controlled. Ambulating without difficulty. well. Peripartum Data Delivery Method: Natural Vaginal Laceration Description: None complications: none Status at Discharge Cognitive/behavioral status at discharge: oriented Functional status at discharge: independent ambulation Overall status at discharge: patient is back to baseline Time Spent with Patient Time attestation: Total time spent providing and/or coordinating discharge services: Time spent: Greater than 30 minutes Objective Labs 05/16/24 16:15 Labs: Laboratory Results - last 24 hr 05/16/24 16:15 WBC 12.1 H RBC 3.72 L Hgb 12.3 Hct 36.6 MCV 98.3 MCH 33.1 MCHC 33.7 RDW 12.9 Plt Count 259 Neut % (Auto) 73.5 Lymph % (Auto) 18.3 L Pershing % (Auto) 7.3 Eos % (Auto) 0.4 L Baso % (Auto) 0.5 Neut # (Auto) 8900 H Lymph # (Auto) 2200 Pershing # (Auto) 900 Eos # (Auto) 100 Baso # (Auto) 100 Blood Type O Negative Antibody Screen Positive Antibody Identification Anti-D Exam Narrative Exam Narrative: NAD, breathing easily. Discharge Plan Discharge Plan Patient Disposition: Home Discharge orders & Medications Prescriptions: Continued lamotrigine 200 mg tablet 200 mg PO BID vitamin B complex Tablet 1 tab PO DAILY folic acid 1 mg tablet 4 mg PO DAILY PNV #[id number] 30 mg iron-10 mg iron-1 mg capsule 1 cap PO DAILY 90 Days Qty: 90 3RF Follow up/Referrals: Viola Arboleda PA-C [Primary Care Provider] - Visit Report/Discharge Packet Stand Alone Forms: Patient Portal/API, Stroke Signs & Symptoms Discharge Data Primary Care Provider: Viola Arboleda I
[2024-05-17] MEDS: RHO(D) IMMUNE GLOBULIN 1,500 UNIT SYRINGE 1500 UNIT IM (17:22)
== END 2024-05-17 19:35 | disposition home or self-care (01) | DRG 807 ==
PROVIDERS: Admitting Provider Student in an Organized Health Care Education/Training Program; PCP Physician Assistant; Referring Provider Student in an Organized Health Care Education/Training Program; Visit Provider Student in an Organized Health Care Education/Training Program
DX: O99.354 Diseases of the nervous system complicating childbirth (principal); Z37.0 Single live birth; G40.909 Epilepsy, unspecified, not intractable, without status epilepticus; O99.324 Drug use complicating childbirth; F12.90 Cannabis use, unspecified, uncomplicated; Z3A.40 40 weeks gestation of pregnancy
CPT/HCPCS: 36415; 59050; 85025; 86850; 86870; 86900; 86901; G0379; J2405; J2790

== ENCOUNTER → 2024-06-25 11:02 | Outpatient (CLI) | payer OTHER, SELFPAY ==
[2024-06-26 14:08] LABS: Candida species Negative (Negative); Gardnerella vaginalis Negative (Negative); Trichomoas vaginalis Negative (Negative)
== END ==
PROVIDERS: PCP Physician Assistant; Visit Provider Specialist
DX: N89.8 Other specified noninflammatory disorders of vagina (principal)
CPT/HCPCS: 87480; 87510; 87660